=== PATIENT | male | born 1975 | race Two or more races ===

== ENCOUNTER 2017-08-20 18:59 | Emergency (ER) | payer OTHER ==
[~2017-08-20] VITALS: Ht 177.8 cm; Wt 86.6 kg
[2017-08-20 21:42] VITALS: BP 112/70
== END 2017-08-20 21:43 | disposition home or self-care (01) ==
LOC: EME 18:59
DX: S16.1XXA Strain of muscle, fascia and tendon at neck level, initial encounter (principal); M62.838 Other muscle spasm; V43.52XA Car driver injured in collision with other type car in traffic accident, initial encounter; Y92.410 Unspecified street and highway as the place of occurrence of the external cause
CPT/HCPCS: 72040; 99281; 99283